=== PATIENT | female | born 1990 | race African-American/Black ===

== ENCOUNTER 2023-10-02 06:03 | Inpatient (IN) | payer SELFPAY ==
[2023-10-02] VITALS (67 sets, daily range): BP systolic 86–157; BP diastolic 44–77; PULSE 63–118; RESP 16–29; TEMP 36.4–37.3; O2SAT 98–100
--- NOTE | 2023-10-02 06:22 | W.ED.GENAD ---
Discharge Plan Discharge Details Chief Complaint: GenMedical Primary Care Provider: Unknown,Unknown ED Provider: Ragini Hinds Home Meds and New Rx's Prescriptions: No Action No Known Home Meds HPI General Mode of arrival: ambulatory. Date/Time Provider Initiated Documentation: 10/02/23 06:14. Limitations to Documentation: no limitations. Information obtained by: patient. HPI Narrative: 33yo F with T1DM presenting with N/V and malaise, feels like prior episodes of DKA. Ran out of long-acting insulin 5 days ago. Has been using small bolus (5-10 units) of short acting insulin over this period of time; ran out of short acting yesterday morning. Does not have supplies to check her blood glucose at home; not sure what it has been. For the past 24 hours has been vomiting, tolerating on sips of fluids. No abdominal pain. Has had some mild left upper chest pain, feels tender when she pushes on it, for the past week or so. No shortness of breath. No fevers, chills, rash, dysuriua, hematuria, flank pain, or other concerns. Related Data Home Medications ?Medication ?Instructions ?Recorded ?Confirmed Unknown [No Known Home Meds] 10/02/23 10/02/23 Allergies Allergy/AdvReac Type Severity Reaction Status Date / Time amoxicillin AdvReac Intermediate Nausea Verified 10/02/23 06:12 General Stated Complaint: GenMedical JESUS ALBERTO: 3 Review of Systems Narrative: see HPI Exam Narrative Exam Narrative: General: Alert, well appearing, well nourished, in no acute distress. Head: Normocephalic, atraumatic Neck: Trachea midline, ?Neck supple. ENT: ?MMM.? No oropharygeal lesions or exudate. Cardiac: ?RRR, no murmurs appreciated Resp: No respiratory distress. CTAB. Chest: left anterior lateral superior chest wall tenderness to palpation Abd: ?Soft, non-distended, nontender : ?No suprapubic tenderness. Extremities: ?No deformities.? No peripheral edema. Neurologic: GCS 15. ? Moves all extremities freely against gravity Course Vital Signs Vital signs: Vital Signs Temperature 36.6 C 10/02/23 06:07 Pulse 93 H 10/02/23 06:07 Respiratory Rate 20 10/02/23 06:07 Blood Pressure 123/73 10/02/23 06:07 Pulse Oximetry 100 10/02/23 06:07 Temperature 36.6 C 10/02/23 06:07 Temperature Source Temporal Artery Scan 10/02/23 06:07 Pulse 93 H 10/02/23 06:07 Respiratory Rate 20 10/02/23 06:17 Respiratory Effort Normal, Non-Labored 10/02/23 06:17 Respiratory Depth Normal 10/02/23 06:17 Respiratory Pattern Normal 10/02/23 06:17 Blood Pressure 123/73 10/02/23 06:07 Blood Pressure Position Sitting 10/02/23 06:07 Pulse Oximetry 100 10/02/23 06:07 Oxygen Delivery Method Room Air 10/02/23 06:07 Oxygen Flow Rate 0 10/02/23 06:07 Pain Level 0 10/02/23 06:07 Lab/Test Results Lab/Test Results: Laboratory Tests Range/Units 10/02/23 06:19 Beta HCG, Quant Cancelled POC- Test(urine) Negative Medical Decision Making 33yo F with T1DM presenting with N/V and malaise, feels like prior episodes of DKA. Fingerstick on arrival 413. Ran out of long-acting insulin 5 days ago, short acting insulin yesterday; has no supplies to check blood glucose at home. [place], does not have anyone currently prescribed her medications here. HR slightly elevated at 93 on arrival, vital signs otherwise reassuring. No abdominal tenderness on exam; would not get CT imaging. Does have mild chest wall tenderness likely muscular in origin; will evaluate for cardiac pathology (unlikely) with EKG/troponin, as well as CXR. Highly suspicious for DKA in the setting of medication non-compliance; no infectious symptoms or other clear provoking factor. Will start fluid resus with 2L IVFB, send labs and await results prior to administering insulin. -EKG with appropriate intervals, no ST segment or T wave abnormalities to suggest occlusive NC. -Labs reviewed as below, CBC with leukocytosis to 17 (nonspecific), initial lactic 3.1. CMP, VBG, troponin pending. Urine negative; UA with high glucose and ketones. Signed out to oncoming physician; pending CXR and labs as above. Quality:[facility] Health Related Social Needs: No Data to Display [facility] Social History Smoking/Tobacco Use Status: Current every day Tobacco Type: cigarettes and e-cigarettes Smoking risk assessment performed?: Yes Alcohol Intake: current Alcohol Intake frequency: a few times a month Drug use: Daily Substance use type: marijuana Sign Out Sign Out Data: Sign Out Comment: 33yo F, T1DM, ran out of insulin. Likely in DKA, fs ~400s, vomiting; urine with glucose and ketones. Getting 2L IVFB. Benign abdominal exam, no concerned for surgical abd. Pending CMP/VBG, troponin & CXR (chest pain likely msk). Last updated by Karla Scott MD at 10/02/23 07:28
[2023-10-02 06:26] LABS: Abs Immature Grans 0.06 10^3/uL (0.0-0.06); Absolute Eosinophil Count 0.02 10^3/uL (0.0-0.7); Absolute Lymphocyte Count 1.79 10^3/uL (1.2-3.4); Absolute Neutrophil Count 14.48 10^3/uL (1.2-6.7); Basophils % 0.5 %; Eosinophils % 0.1 %; HCT 47.5 % (36.0-46.0); HGB 15.8 g/dL (11.2-15.7); Immature Grans % 0.4 %; Lymphocytes % 10.5 %; MCH 31.1 pg (27.0-33.0); MCHC 33.3 % (32.0-36.0); MCV 94 fL (80-95); MPV 9.9 fL (8.0-11.0); Monocytes % 3.5 %; Platelet Count 343 10^3/uL (130-400); RBC 5.08 10^6/uL (3.93-5.22); RDW 12.4 % (11.7-14.6); WBC 17.03 10^3/uL (4.4-10.8)
[2023-10-02 06:27] LABS: Absolute Basophil Count 0.09 10^3/uL (0.0-0.2)
[2023-10-02 06:28] LABS: Lactate 3.1 mmol/L (0.6-1.4)
[2023-10-02] MEDS: Ondansetron 4 MG/2 ML VIAL IVP ×2 (06:28→08:46)
[2023-10-02] MEDS: Lactated Ringers 1,000 ML 1000 ML IV (06:28)
--- NOTE | 2023-10-02 06:30 | RT.EKG_ITS ---
APPROVED REPORT Exam: Resting ECG Reason for Exam: chest pain Patient Location: E HR:83 bpm ECG Measurements Heart Rate 83 AXIS MS 129 P 79 QRSd 85 QRS 58 QT 357 T 31 QTc 420 Conclusion Sinus arrhythmia...V-rate 74- 92, variation>10% appropriate intervals no ST segment or T wave abnormalities to suggest occlusive SD
[2023-10-02 06:32] LABS: Bilirubin Negative (Negative); Blood Negative (Negative); Clarity Clear (Clear); Glucose 500 mg/dL (Negative); Ketones >=160 mg/dL (Negative); Leukocyte Esterase Negative (Negative); Nitrite Negative (Negative); Specific Gravity 1.025 (1.005-1.025); Urobilinogen 0.2 mg/dL (Up to 0.2)
--- NOTE | 2023-10-02 07:00 | DI.RAD_ITS ---
Exam(s) XR CHEST 2V PA LATERAL EXAM: XR CHEST 2V PA LATERAL CLINICAL HISTORY: chest pain TECHNIQUE: 2D digital imaging was performed. Two views. COMPARISON: No exams were available for comparison FINDINGS: HEART: Normal size. Aorta: Not dilated. PULMONARY VASCULATURE: Normal. MEDIASTINUM: Unremarkable. LUNGS: Clear. PLEURAL SPACE: No pleural effusion or pneumothorax. BONE:Unremarkable for age. SOFT TISSUES: Unremarkable. IMPRESSION: No acute abnormality. DATA REPOSITORY: RADIATION DOSE DELIVERED:
[2023-10-02 07:23] LABS: BE (Venous) -18 mmol/L (-2-3); HCO3 (Venous) 10 mmol/L (23-28); O2 Sat (Venous) 91 %; TCO2 (Venous) 9 mmol/L (24-29); pCO2 (Venous) 25 mmHg (41-51); pH (Venous) 7.22 (7.31-7.41); pO2 (Venous) 70 mmHg
[2023-10-02 07:43] LABS: ALT 27 U/L (14-59); AST 23 U/L (15-37); Albumin 4.3 g/dL (3.4-5.0); Alkaline Phosphatase 92 U/L (46-116); Anion Gap 25.9 mmol/L (3-11); BUN 18 mg/dL (7-18); Bilirubin, Total 0.86 mg/dL (0.2-1.0); CO2 11.1 mmol/L (21.0-32.0); CREATININE 1.2 mg/dL (0.55-1.02); Calcium 9.6 mg/dL (8.5-10.1); Chloride 94 mmol/L (98-107); Estimated GFR 60.92 (mL/min/1.73m2); Glucose 462 mg/dL (74-106); Potassium 4.4 mmol/L (3.5-5.1); Sodium 131 mmol/L (136-145); Total Protein 7.9 g/dL (6.4-8.2)
[2023-10-02 07:44] LABS: Troponin I < 50 ng/L (< or =60)
[2023-10-02] MEDS: Normal Saline 1,000 ML 1000 ML IV (08:07)
--- NOTE | 2023-10-02 08:09 | W.EDPROG ---
Date of service: 10/02/23 Time of Service: 08:00 Medical Decision Making In brief, this is a 33-year-old female patient with a history of insulin-dependent diabetes presenting with generalized malaise in the setting of running out of her insulin. At the time that I took over her care, her workup is most concerning for diabetic ketoacidosis, with an elevated blood glucose in the 400s as well as a VBG with a pH decreased to 7.2. Her CBC demonstrates a leukocytosis but the patient has no focal infectious symptoms, is afebrile, and had a normal urinalysis. Her workup at the time that I took over her care was pending completion of a comprehensive metabolic panel, completion of her 2 L fluid bolus, and initiation of DKA protocol once her potassium has resulted. I did independently interpret the patient's x-ray, which does not show any concerning infiltrates to suggest pneumonia as the inciting event to cause her DKA. CMP shows a potassium of 4.4, bicarb of 10 and an anion gap of 26. Given this finding she was started on the DKA protocol, to include insulin drip (starting at 2 units/h), potassium containing maintenance fluid at 128 mL/h, and every hour blood glucose and every 2 hour metabolic panel checks. After initial fluid resuscitation the patient's lactate was noted to normalized to 1.7. The patient's repeat VBG demonstrates ongoing acidosis with a pH of 7.19 and a CO2 of 19, consistent with a metabolic acidosis with respiratory compensation. Her repeat metabolic panels demonstrate no significant improvement in her anion gap or bicarb, blood glucose decreased to the 200s. I reached out to our hospitalist who is graciously accepted this patient for admission to the ICU for ongoing management of her diabetic ketoacidosis. The patient remained hemodynamically appropriate while under my care, and she was transferred from this department without incident. Ragini Hinds MD Medical Records Medical records reviewed: Yes I reviewed the patient's medical records. Lab Data Lab results reviewed: Yes I reviewed the patient's lab results. Quality:[facility] Health Related Social Needs: No Data to Display Exam Narrative Exam Narrative: Repeat examination: Gen: Awake and alert, in no apparent distress HEENT: Non-icteric sclera Neck: Supple and without meningismus Lungs: No apparent respiratory distress, normal respiratory effort. CV: Appears well perfused, strong distal pulses Abdomen: Non-distended, soft, nontender MSK: Moves 4 extremities without apparent limitation in ROM Skin: Visualized skin without rashes, cyanosis. Neuro: Normal Gait, no obvious focal deficits or facial asymmetry. Speaks in full, clear sentences. Psych: Appropriate for situation. Sign Out Sign Out Data: Sign Out Comment: 33yo F, T1DM, ran out of insulin. Likely in DKA, fs ~400s, vomiting; urine with glucose and ketones. Getting 2L IVFB. Benign abdominal exam, no concerned for surgical abd. Pending CMP/VBG, troponin & CXR (chest pain likely msk). Last updated by Karla Scott MD at 10/02/23 07:28 Discharge Plan Disposition Patient Disposition: Admit to [facility] Condition: Improving Discharge Details Chief Complaint: GenMedical Clinical Impression: DKA (diabetic ketoacidosis) Admit Date/Time: 10/02/23 11:41 Admit Provider: Martinez Rogers Attending Provider: Martinez Rogers Primary Care Provider: [facility] ED Provider: Ragini Hinds
--- NOTE | 2023-10-02 08:38 | DI.VRAD_ITS ---
PROCEDURE INFORMATION: Exam: XR Chest Exam date and time: 10/02/2023 7:39 AM Age: 33 years old Clinical indication: Other: Chest pain TECHNIQUE: Imaging protocol: Radiologic exam of the chest. Views: 2 views. COMPARISON: No relevant prior studies available. FINDINGS: Lungs: Unremarkable. No consolidation. Pleural spaces: Unremarkable. No pleural effusion. No pneumothorax. Heart/Mediastinum: Unremarkable. No cardiomegaly. Bones/joints: Unremarkable. IMPRESSION: No acute findings. Dictated and Authenticated by: Judit Menjivar MD. Ordering:SOM Acosta MD
[2023-10-02 08:42] LABS: BE (Venous) -20 mmol/L (-2-3); HCO3 (Venous) 9 mmol/L (23-28); O2 Sat (Venous) 88 %; TCO2 (Venous) 8 mmol/L (24-29); pCO2 (Venous) 25 mmHg (41-51); pO2 (Venous) 66 mmHg
[2023-10-02 08:47] LABS: pH (Venous) 7.17 (7.31-7.41)
[2023-10-02 08:58] LABS: Anion Gap 26.7 mmol/L (3-11); BUN 18 mg/dL (7-18); CO2 10.3 mmol/L (21.0-32.0); CREATININE 1.2 mg/dL (0.55-1.02); Calcium 9.4 mg/dL (8.5-10.1); Chloride 95 mmol/L (98-107); Estimated GFR 60.92 (mL/min/1.73m2); Glucose 446 mg/dL (74-106); Magnesium 1.7 mg/dL (1.8-2.4); Potassium 4.9 mmol/L (3.5-5.1); Sodium 132 mmol/L (136-145)
[2023-10-02] MEDS: INSULIN REGULAR IN 0.9 % NACL 100 UNIT/100 ML BAG IV (09:08)
[2023-10-02] MEDS: POTASSIUM CHLORIDE/0.9% NACL 1,000 ML 120 MEQ IV (09:10)
[2023-10-02 11:08] LABS: BE (Venous) -21 mmol/L (-2-3); HCO3 (Venous) 7 mmol/L (23-28); O2 Sat (Venous) 97 %; TCO2 (Venous) 7 mmol/L (24-29); pO2 (Venous) 99 mmHg
[2023-10-02 11:10] LABS: pCO2 (Venous) 19 mmHg (41-51); pH (Venous) 7.19 (7.31-7.41)
[2023-10-02 11:11] LABS: Lactate 1.7 mmol/L (0.6-1.4)
[2023-10-02 11:28] LABS: Anion Gap 25.2 mmol/L (3-11); BUN 17 mg/dL (7-18); CO2 8.8 mmol/L (21.0-32.0); CREATININE 1.1 mg/dL (0.55-1.02); Chloride 98 mmol/L (98-107); Estimated GFR 67.62 (mL/min/1.73m2); Glucose 325 mg/dL (74-106); Magnesium 1.8 mg/dL (1.8-2.4); Potassium 4.5 mmol/L (3.5-5.1); Sodium 132 mmol/L (136-145)
--- NOTE | 2023-10-02 11:53 | HPE_ITS ---
Date of service: 10/02/23 Time of Service: 11:53 Assessment and Plan Assessment and plan (1) DKA (diabetic ketoacidosis): Start date: 10/02/23 Status: Acute Assessment and plan: Continue aggressive IV fluid hydration and potassium replacement, monitor blood sugars hourly or more frequently as needed, monitor BMP every 2 hours. Recheck VBG, check phosphorus levels and magnesium levels. Correct electrolyte abnormalities provide antiemetics and advance her diet as tolerated. Note patient is starting to feel hungry less nauseated and would like some solid foods. 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 She anticipates that she will be on the road for the next 6 weeks before she gets back to [place]. I told her we could write a prescription for a month supply with refills of her medications including her Tresiba and her Humalog so that she does not go into DKA again while she is traveling. Critical care time spent interviewing and examining the patient, reviewing studies, discussing case with patient's nurse and consulting physicians was 45 minutes Qualifiers: Diabetes mellitus type: type 1 Diabetes mellitus complication detail: w [facility] Qualified Code(s): E10.10 - Type 1 diabetes mellitus with ketoacidosis without coma History of Present Illness History of Present Illness Chief Complaint: DKA Narrative: 33 yr old female who comes here from [place], [place] who has had type I DM diagnosed since 2018, who lost her Tresiba on a kayaking trip and has been getting by w/ her short acting insulin Humalog. She ran out of his yesterday. She tried to get her insulin refilled by her PCP in [place] (Dianne Boudreaux M.D., [facility], [place], [place] however her informatics specialist would not prescribe a refill w/out labwork. The patient has been on the road traveling w/ the [employer] and happened to be in town for the [facility]. She ran out of her insulin yesterday and developed nausea and vomiting and elevated glucose. Last dose of insulin 4 units Humalog at 11 am on 09/30. Today she was found to be in DKA w/ glucose in the 400's and AG of 25.9, pH 7.22, CO2 of 11. She denies any fevers, rigors, cold symptoms or dysuria or hematuria or cough. Workup in the ED included routine labs including CMP, CBC, UA, CXR. UA was negative for signs of infection but high ketones and glucose. CXR was negative. Treatment included 2 liters of iv LR then NS w/ 20 meq KCl per liter at 125 mL/hr and insulin drip. The hospitalist service was asked to admit and treat her for DKA. At the time of the admission request the hospital was at capacity which necessitated keeping her on hold in the ED until an ICU bed could be cleared which necessitated discharging floor patients prior to moving patients out of the ICU. Serial BMP have been monitored q2h and her glucose has been monitored q1h w/ adjustment per [place] insulin DKA protocol. Glucose is now under 200 mg/dL and she has been started on D5NS w/ 40 meq KCl per liters. Current glucose is 157 and her AG is closing at 15.2 w/ CO2 of 14.8, K of 4.3. PFSH All Active Problems (Updated 10/02/23 @ 16:18 by Martinez Rogers MD) Type I diabetes mellitus (Acute ~2014) DKA (diabetic ketoacidosis) (Acute) last A1C was checked last year and reported to be 9.2% Surgical History (Updated 10/02/23 @ 16:06 by Martinez Rogers MD) History of tonsillectomy Hx of breast implants, bilateral Social History Smoking/Tobacco Use Status: Current every day Tobacco Type: cigarettes and e- cigarettes Smoking risk assessment performed?: Yes Alcohol Intake: current Alcohol Intake frequency: a few times a month Drug use: Daily Substance use type: marijuana Housing: apartment Meds Allergies and Home Medications Allergies Allergy/AdvReac Type Severity Reaction Status Date / Time amoxicillin AdvReac Intermediate Nausea Verified 10/02/23 06:12 Home Medications ?Medication ?Instructions ?Recorded ?Confirmed ?Type Unknown [No Known Home Meds] 10/02/23 10/02/23 History Exam Narrative Exam Narrative: Thin young -Ira[place] female who appears to be alert and oriented x 3 no acute distress not having Kussmaul respirations no accessory respiratory muscles. This point of breath does not admit have any fruity smell. Oropharynx is noninjected no exudate Neck is supple she has a few shotty anterior lymph nodes that are nontender no thyromegaly normal carotid pulses no bruits Lungs are clear to auscultation Heart regular rate and rhythm without murmur rub or gallop Abdomen soft nondistended nontender normal bowel sounds Extremities without peripheral cyanosis edema she has normal pedal pulses no ulcerations of the skin over her toes or feet sensation is intact to light touch Results Labs 10/02/23 06:20 10/02/23 13:04 Labs: Laboratory Results - last 24 hr 10/02/23 10/02/23 10/02/23 06:10 06:19 06:20 WBC 17.03 H RBC 5.08 Hgb 15.8 H Hct 47.5 H MCV 94 MCH 31.1 MCHC 33.3 RDW 12.4 Plt Count 343 MPV 9.9 Immature Gran % 0.4 Neutrophils % 85.0 Lymphocytes % 10.5 Monocytes % 3.5 Eosinophils % 0.1 Basophils % 0.5 Nucleated RBC % 0.0 Absolute Neutrophils 14.48 H Absolute Lymphocytes 1.79 Absolute Monocytes 0.60 Absolute Eosinophils 0.02 Absolute Basophils 0.09 VBG pH VBG pCO2 VBG pO2 VBG HCO3 VBG Total CO2 VBG O2 Saturation VBG Base Excess VBG Lactate 3.1 H* Sodium Cancelled Potassium Cancelled Chloride Cancelled Carbon Dioxide Cancelled Anion Gap Cancelled BUN Cancelled Creatinine Cancelled Est GFR (CKD-EPI 2020) Cancelled Glucose Cancelled Calcium Cancelled Magnesium Total Bilirubin Cancelled AST Cancelled ALT Cancelled Alkaline Phosphatase Cancelled Troponin I Total Protein Cancelled Albumin Cancelled Beta HCG, Quant Cancelled Urine Color Yellow Urine Clarity Clear Urine pH 5.0 Ur Specific [place] 1.025 Urine Protein Negative Urine Ketones >=160 H Urine Blood Negative Urine Nitrite Negative Urine Bilirubin Negative Urine Urobilinogen 0.2 Ur Leukocyte Esterase Negative Urine Glucose 500 H 10/02/23 10/02/23 10/02/23 07:15 07:15 08:35 WBC RBC Hgb Hct MCV MCH MCHC RDW Plt Count MPV Immature Gran % Neutrophils % Lymphocytes % Monocytes % Eosinophils % Basophils % Nucleated RBC % Absolute Neutrophils Absolute Lymphocytes Absolute Monocytes Absolute Eosinophils Absolute Basophils VBG pH 7.22 L 7.17 L* VBG pCO2 25 L 25 L VBG pO2 70 66 VBG HCO3 10 L 9 L VBG Total CO2 9 L 8 L VBG O2 Saturation 91 88 VBG Base Excess -18 L -20 L VBG Lactate Sodium 131 L 132 L Potassium 4.4 4.9 Chloride 94 L 95 L Carbon Dioxide 11.1 L 10.3 L Anion Gap 25.9 H 26.7 H BUN 18 18 Creatinine 1.2 H 1.2 H Est GFR (CKD-EPI 2020) 60.92 60.92 Glucose 462 H 446 H Calcium 9.6 9.4 Magnesium 1.7 L Total Bilirubin 0.86 AST 23 ALT 27 Alkaline Phosphatase 92 Troponin I Cancelled < 50 Total Protein 7.9 Albumin 4.3 Beta HCG, Quant Urine Color Urine Clarity Urine pH Ur Specific [place] Urine Protein Urine Ketones Urine Blood Urine Nitrite Urine Bilirubin Urine Urobilinogen Ur Leukocyte Esterase Urine Glucose 10/02/23 11:02 WBC RBC Hgb Hct MCV MCH MCHC RDW Plt Count MPV Immature Gran % Neutrophils % Lymphocytes % Monocytes % Eosinophils % Basophils % Nucleated RBC % Absolute Neutrophils Absolute Lymphocytes Absolute Monocytes Absolute Eosinophils Absolute Basophils VBG pH 7.19 L* VBG pCO2 19 L* VBG pO2 99 VBG HCO3 7 L VBG Total CO2 7 L VBG O2 Saturation 97 VBG Base Excess -21 L VBG Lactate 1.7 H Sodium 132 L Potassium 4.5 Chloride 98 Carbon Dioxide 8.8 L Anion Gap 25.2 H BUN 17 Creatinine 1.1 H Est GFR (CKD-EPI 2020) 67.62 Glucose 325 H Calcium 8.0 L Magnesium 1.8 Total Bilirubin AST ALT Alkaline Phosphatase Troponin I Total Protein Albumin Beta HCG, Quant Urine Color Urine Clarity Urine pH Ur Specific [place] Urine Protein Urine Ketones Urine Blood Urine Nitrite Urine Bilirubin Urine Urobilinogen Ur Leukocyte Esterase Urine Glucose Last Vital Signs Temp 36.4 C L 10/02/23 10:31 Pulse 91 H 10/02/23 10:31 Resp 23 10/02/23 10:31 BP 102/55 L 10/02/23 10:31 Pulse Ox 99 10/02/23 10:31 Time Spent Time spent with Patient: 40-54 minutes Time was spent: preparing to see the patient(eg.review tests), obtaining and/or reviewing separately otained hiistory, ordering medications,tests, procedures, referring, communicating with other health transitional care manager, indepentently interpreting results, counseling the patient and care coordination
--- NOTE | 2023-10-02 12:15 | W.PC.ACHO ---
Registration Status: Primary Language: Preferred Language: ED Information & Data Chief Complaint GenMedical 10/02/23 06:22 Triage Note Pt states she has not had 10/02/23 06:07 long lasting insulin in approx 5 days, used the last of her short acting (4u @ 1100 on 09/30) yesterday. Pt states feels like shit. c/o nausea and vomiting x24hrs. Pt does not know when she last checked her sugar, does not have BGL machine. Most Recent Vital Signs Temperature 36.4 C L 10/02/23 10:31 Temperature Source Temporal Artery Scan 10/02/23 06:07 Pulse 91 H 10/02/23 10:31 Pulse 91 H 10/02/23 10:31 Respiratory Rate 23 10/02/23 10:31 Respiratory Effort Normal, Non-Labored 10/02/23 06:17 Respiratory Depth Normal 10/02/23 06:17 Respiratory Pattern Normal 10/02/23 06:17 Blood Pressure 102/55 L 10/02/23 10:31 Blood Pressure Mean 70 10/02/23 10:31 Blood Pressure Position Sitting 10/02/23 06:07 Pulse Oximetry 99 10/02/23 10:31 Oxygen Delivery Method Room Air 10/02/23 06:07 Oxygen Flow Rate 0 10/02/23 06:07 Pain Level 0 10/02/23 06:07 Allergies amoxicillin Adverse Reaction (Intermediate, Verified 10/02/23 06:12) Nausea Precautions Isolation Standard precaution 10/02/23 06:11 Active Medications Generic Name Dose Route Start Last Admin Trade Name Bonny PRN Reason Stop Dose Admin Insulin Human Regular 100 unit in 100 mls @ 2 mls/hr 10/02/23 08:00 10/02/23 12:04 Myxredlin IV 2 unit/hr INFUSION YOGESH 2 mls/hr Titration Protocol 2 UNIT/HR IV IV Catheter Type [Right Upper Peripheral IV arm] IV Catheter Type [Right Peripheral IV Forearm] IV Catheter Gauge [Right Upper 20 arm] IV Catheter Gauge [Right 20 Forearm] Diagnostics 10/02/23 10/02/23 10/02/23 Range/Units 22:00 20:00 18:00 WBC (4.4-10.8) 10^3/uL RBC (3.93-5.22) 10^6/uL Hgb (11.2-15.7) g/dL Hct (36.0-46.0) % MCV (80-95) fL MCH (27.0-33.0) pg MCHC (32.0-36.0) % RDW (11.7-14.6) % Plt Count (130-400) 10^3/uL MPV (8.0-11.0) fL Immature Gran % % Neutrophils % % Lymphocytes % % Monocytes % % Eosinophils % % Basophils % % Nucleated RBC % (0.0-0.3) % Absolute Neutrophils (1.2-6.7) 10^3/uL Absolute Lymphocytes (1.2-3.4) 10^3/uL Absolute Monocytes (0.1-0.8) 10^3/uL Absolute Eosinophils (0.0-0.7) 10^3/uL Absolute Basophils (0.0-0.2) 10^3/uL VBG pH (7.31-7.41) VBG pCO2 (41-51) mmHg VBG pO2 mmHg VBG HCO3 (23-28) mmol/L VBG Total CO2 (24-29) mmol/L VBG O2 Saturation % VBG Base Excess (-2-3) mmol/L VBG Lactate (0.6-1.4) mmol/L Sodium Pending Pending Pending Potassium Pending Pending Pending Chloride Pending Pending Pending Carbon Dioxide Pending Pending Pending Anion Gap Pending Pending Pending BUN Pending Pending Pending Creatinine Pending Pending Pending Est GFR (CKD-EPI 2020) Pending Pending Pending Glucose Pending Pending Pending Calcium Pending Pending Pending Phosphorus Magnesium Pending Pending Pending (1.8-2.4) mg/dL Total Bilirubin AST ALT Alkaline Phosphatase Troponin I Total Protein Albumin Beta HCG, Quant Urine Color (Yellow) Urine Clarity (Clear) Urine pH (5-8) Ur Specific [place] (1.005-1.025) Urine Protein (Neg-Trace) mg/dL Urine Ketones (Negative) mg/dL Urine Blood (Negative) Urine Nitrite (Negative) Urine Bilirubin (Negative) Urine Urobilinogen (Up to 0.2) mg/dL Ur Leukocyte Esterase (Negative) Urine Glucose (Negative) mg/dL 10/02/23 10/02/23 10/02/23 Range/Units 16:00 14:00 12:00 WBC (4.4-10.8) 10^3/uL RBC (3.93-5.22) 10^6/uL Hgb (11.2-15.7) g/dL Hct (36.0-46.0) % MCV (80-95) fL MCH (27.0-33.0) pg MCHC (32.0-36.0) % RDW (11.7-14.6) % Plt Count (130-400) 10^3/uL MPV (8.0-11.0) fL Immature Gran % % Neutrophils % % Lymphocytes % % Monocytes % % Eosinophils % % Basophils % % Nucleated RBC % (0.0-0.3) % Absolute Neutrophils (1.2-6.7) 10^3/uL Absolute Lymphocytes (1.2-3.4) 10^3/uL Absolute Monocytes (0.1-0.8) 10^3/uL Absolute Eosinophils (0.0-0.7) 10^3/uL Absolute Basophils (0.0-0.2) 10^3/uL VBG pH (7.31-7.41) VBG pCO2 (41-51) mmHg VBG pO2 mmHg VBG HCO3 (23-28) mmol/L VBG Total CO2 (24-29) mmol/L VBG O2 Saturation % VBG Base Excess (-2-3) mmol/L VBG Lactate (0.6-1.4) mmol/L Sodium Pending Pending Pending Potassium Pending Pending Pending Chloride Pending Pending Pending Carbon Dioxide Pending Pending Pending Anion Gap Pending Pending Pending BUN Pending Pending Pending Creatinine Pending Pending Pending Est GFR (CKD-EPI 2020) Pending Pending Pending Glucose Pending Pending Pending Calcium Pending Pending Pending Phosphorus Magnesium Pending Pending Pending (1.8-2.4) mg/dL Total Bilirubin AST ALT Alkaline Phosphatase Troponin I Total Protein Albumin Beta HCG, Quant Urine Color (Yellow) Urine Clarity (Clear) Urine pH (5-8) Ur Specific [place] (1.005-1.025) Urine Protein (Neg-Trace) mg/dL Urine Ketones (Negative) mg/dL Urine Blood (Negative) Urine Nitrite (Negative) Urine Bilirubin (Negative) Urine Urobilinogen (Up to 0.2) mg/dL Ur Leukocyte Esterase (Negative) Urine Glucose (Negative) mg/dL 10/02/23 10/02/23 10/02/23 Range/Units 11:02 08:35 07:15 WBC (4.4-10.8) 10^3/uL RBC (3.93-5.22) 10^6/uL Hgb (11.2-15.7) g/dL Hct (36.0-46.0) % MCV (80-95) fL MCH (27.0-33.0) pg MCHC (32.0-36.0) % RDW (11.7-14.6) % Plt Count (130-400) 10^3/uL MPV (8.0-11.0) fL Immature Gran % % Neutrophils % % Lymphocytes % % Monocytes % % Eosinophils % % Basophils % % Nucleated RBC % (0.0-0.3) % Absolute Neutrophils (1.2-6.7) 10^3/uL Absolute Lymphocytes (1.2-3.4) 10^3/uL Absolute Monocytes (0.1-0.8) 10^3/uL Absolute Eosinophils (0.0-0.7) 10^3/uL Absolute Basophils (0.0-0.2) 10^3/uL VBG pH 7.19 L* 7.17 L* (7.31-7.41) VBG pCO2 19 L* 25 L (41-51) mmHg VBG pO2 99 66 mmHg VBG HCO3 7 L 9 L (23-28) mmol/L VBG Total CO2 7 L 8 L (24-29) mmol/L VBG O2 Saturation 97 88 % VBG Base Excess -21 L -20 L (-2-3) mmol/L VBG Lactate 1.7 H (0.6-1.4) mmol/L Sodium 132 L 132 L Potassium 4.5 4.9 Chloride 98 95 L Carbon Dioxide 8.8 L 10.3 L Anion Gap 25.2 H 26.7 H BUN 17 18 Creatinine 1.1 H 1.2 H Est GFR (CKD-EPI 2020) 67.62 60.92 Glucose 325 H 446 H Calcium 8.0 L 9.4 Phosphorus Pending Magnesium 1.8 1.7 L (1.8-2.4) mg/dL Total Bilirubin AST ALT Alkaline Phosphatase Troponin I < 50 Total Protein 7.9 Albumin 4.3 Beta HCG, Quant Urine Color (Yellow) Urine Clarity (Clear) Urine pH (5-8) Ur Specific [place] (1.005-1.025) Urine Protein (Neg-Trace) mg/dL Urine Ketones (Negative) mg/dL Urine Blood (Negative) Urine Nitrite (Negative) Urine Bilirubin (Negative) Urine Urobilinogen (Up to 0.2) mg/dL Ur Leukocyte Esterase (Negative) Urine Glucose (Negative) mg/dL 10/02/23 10/02/23 10/02/23 Range/Units 07:15 06:20 06:19 WBC 17.03 H (4.4-10.8) 10^3/uL RBC 5.08 (3.93-5.22) 10^6/uL Hgb 15.8 H (11.2-15.7) g/dL Hct 47.5 H (36.0-46.0) % MCV 94 (80-95) fL MCH 31.1 (27.0-33.0) pg MCHC 33.3 (32.0-36.0) % RDW 12.4 (11.7-14.6) % Plt Count 343 (130-400) 10^3/uL MPV 9.9 (8.0-11.0) fL Immature Gran % 0.4 % Neutrophils % 85.0 % Lymphocytes % 10.5 % Monocytes % 3.5 % Eosinophils % 0.1 % Basophils % 0.5 % Nucleated RBC % 0.0 (0.0-0.3) % Absolute Neutrophils 14.48 H (1.2-6.7) 10^3/uL Absolute Lymphocytes 1.79 (1.2-3.4) 10^3/uL Absolute Monocytes 0.60 (0.1-0.8) 10^3/uL Absolute Eosinophils 0.02 (0.0-0.7) 10^3/uL Absolute Basophils 0.09 (0.0-0.2) 10^3/uL VBG pH 7.22 L (7.31-7.41) VBG pCO2 25 L (41-51) mmHg VBG pO2 70 mmHg VBG HCO3 10 L (23-28) mmol/L VBG Total CO2 9 L (24-29) mmol/L VBG O2 Saturation 91 % VBG Base Excess -18 L (-2-3) mmol/L VBG Lactate 3.1 H* (0.6-1.4) mmol/L Sodium 131 L Cancelled Potassium 4.4 Cancelled Chloride 94 L Cancelled Carbon Dioxide 11.1 L Cancelled Anion Gap 25.9 H Cancelled BUN 18 Cancelled Creatinine 1.2 H Cancelled Est GFR (CKD-EPI 2020) 60.92 Cancelled Glucose 462 H Cancelled Calcium 9.6 Cancelled Phosphorus Magnesium (1.8-2.4) mg/dL Total Bilirubin 0.86 Cancelled AST 23 Cancelled ALT 27 Cancelled Alkaline Phosphatase 92 Cancelled Troponin I Cancelled Total Protein Cancelled Albumin Cancelled Beta HCG, Quant Cancelled Urine Color (Yellow) Urine Clarity (Clear) Urine pH (5-8) Ur Specific [place] (1.005-1.025) Urine Protein (Neg-Trace) mg/dL Urine Ketones (Negative) mg/dL Urine Blood (Negative) Urine Nitrite (Negative) Urine Bilirubin (Negative) Urine Urobilinogen (Up to 0.2) mg/dL Ur Leukocyte Esterase (Negative) Urine Glucose (Negative) mg/dL 10/02/23 Range/Units 06:10 WBC (4.4-10.8) 10^3/uL RBC (3.93-5.22) 10^6/uL Hgb (11.2-15.7) g/dL Hct (36.0-46.0) % MCV (80-95) fL MCH (27.0-33.0) pg MCHC (32.0-36.0) % RDW (11.7-14.6) % Plt Count (130-400) 10^3/uL MPV (8.0-11.0) fL Immature Gran % % Neutrophils % % Lymphocytes % % Monocytes % % Eosinophils % % Basophils % % Nucleated RBC % (0.0-0.3) % Absolute Neutrophils (1.2-6.7) 10^3/uL Absolute Lymphocytes (1.2-3.4) 10^3/uL Absolute Monocytes (0.1-0.8) 10^3/uL Absolute Eosinophils (0.0-0.7) 10^3/uL Absolute Basophils (0.0-0.2) 10^3/uL VBG pH (7.31-7.41) VBG pCO2 (41-51) mmHg VBG pO2 mmHg VBG HCO3 (23-28) mmol/L VBG Total CO2 (24-29) mmol/L VBG O2 Saturation % VBG Base Excess (-2-3) mmol/L VBG Lactate (0.6-1.4) mmol/L Sodium Potassium Chloride Carbon Dioxide Anion Gap BUN Creatinine Est GFR (CKD-EPI 2020) Glucose Calcium Phosphorus Magnesium (1.8-2.4) mg/dL Total Bilirubin AST ALT Alkaline Phosphatase Troponin I Total Protein Albumin Beta HCG, Quant Urine Color Yellow (Yellow) Urine Clarity Clear (Clear) Urine pH 5.0 (5-8) Ur Specific [place] 1.025 (1.005-1.025) Urine Protein Negative (Neg-Trace) mg/dL Urine Ketones >=160 H (Negative) mg/dL Urine Blood Negative (Negative) Urine Nitrite Negative (Negative) Urine Bilirubin Negative (Negative) Urine Urobilinogen 0.2 (Up to 0.2) mg/dL Ur Leukocyte Esterase Negative (Negative) Urine Glucose 500 H (Negative) mg/dL [id number] Documentation Fingerstick Glucose Start: 10/02/23 06:18 Freq: .Stat Status: Active Protocol: Activity Type Activity Date Activity User E-sign Co-sign Detail Recorded Client Recorded Date Recorded By Document 10/02/23 06:19 KS [id number] 10/02/23 06:19 KS Fingerstick Glucose Start: 10/02/23 07:54 Freq: .Q1H Status: Active Protocol: Activity Type Activity Date Activity User E-sign Co-sign Detail Recorded Client Recorded Date Recorded By Document 10/02/23 11:05 BKG DAEMON(5) [id number] 10/02/23 11:06 BKG DAEMON(6) Fingerstick Glucose Start: 10/02/23 11:53 Freq: .Q1H Status: Active Protocol: Activity Type Activity Date Activity User E-sign Co-sign Detail Recorded Client Recorded Date Recorded By Document 10/02/23 12:03 BKG DAEMON(7) [id number] 10/02/23 12:04 BKG DAEMON(8) POC Urine Test Start: 10/02/23 06:16 Freq: .Urine Test Status: Active Protocol: Activity Type Activity Date Activity User E-sign Co-sign Detail Recorded Client Recorded Date Recorded By Document 10/02/23 06:20 JENNIFER [id number] 10/02/23 06:20 JENNIFER Intake and Output - 24 Hour Total 10/02/23 06:03 thru 10/02/23 12:04 Intake Total 2314.2 Balance 2314.2 Weight 61.235 kg Intake: IV 2014.2 Oral 300 Falls Risk Assessment History of Falls No History 10/02/23 06:17 Contributing Factors No Factors 10/02/23 06:17 Ambulatory Aids Independent 10/02/23 06:17 Tubes/Lines None 10/02/23 06:17 Gait Evaluation No gait disturbance 10/02/23 06:17 Cognition No cognitive impairment 10/02/23 06:17 Fall Total Score 0 10/02/23 06:17 Level of Risk Standard/Low Risk 10/02/23 06:17 v v v v v v v v v Sending and/or Receiving Nurses: Please use comment section below to note any information pertinent to the patient hand-off not included above. Information / Comments: Report received from:Karie Felix RN All questions answered
[2023-10-02 12:21] LABS: PHOSPHORUS 3.3 mg/dL (2.6-4.7)
[2023-10-02 13:22] LABS: Anion Gap 21.8 mmol/L (3-11); BUN 15 mg/dL (7-18); CO2 12.2 mmol/L (21.0-32.0); CREATININE 1.2 mg/dL (0.55-1.02); Calcium 7.9 mg/dL (8.5-10.1); Chloride 100 mmol/L (98-107); Estimated GFR 60.92 (mL/min/1.73m2); Glucose 212 mg/dL (74-106); Potassium 4.4 mmol/L (3.5-5.1); Sodium 134 mmol/L (136-145)
[2023-10-02] MEDS: Enoxaparin 40 MG/0.4 ML SYR SC (14:20)
[2023-10-02] MEDS: Acetaminophen 325 MG TAB PO ×2 (15:00→19:41)
[2023-10-02] MEDS: POTASSIUM CHLORIDE/D5-0.9%NACL 1,000 ML 150 MEQ IV ×2 (15:00→22:46)
[2023-10-02 15:29] LABS: Anion Gap 15.2 mmol/L (3-11); BUN 13 mg/dL (7-18); CO2 14.8 mmol/L (21.0-32.0); CREATININE 1.1 mg/dL (0.55-1.02); Chloride 102 mmol/L (98-107); Estimated GFR 67.62 (mL/min/1.73m2); Glucose 187 mg/dL (74-106); Potassium 4.3 mmol/L (3.5-5.1); Sodium 132 mmol/L (136-145)
[2023-10-02 16:58] LABS: Lab Add On Test DONE
[2023-10-02 16:59] LABS: BE (Venous) -11 mmol/L (-2-3); HCO3 (Venous) 16 mmol/L (23-28); O2 Sat (Venous) 61 %; TCO2 (Venous) 14 mmol/L (24-29); pCO2 (Venous) 33 mmHg (41-51); pH (Venous) 7.29 (7.31-7.41); pO2 (Venous) 32 mmHg
[2023-10-02 17:12] LABS: BUN 13 mg/dL (7-18); CREATININE 1.2 mg/dL (0.55-1.02); Calcium 8.1 mg/dL (8.5-10.1); Chloride 102 mmol/L (98-107); Estimated GFR 60.92 (mL/min/1.73m2); Glucose 163 mg/dL (74-106); Potassium 4.2 mmol/L (3.5-5.1); Sodium 133 mmol/L (136-145)
[2023-10-02 17:17] LABS: Hemoglobin A1C 11.8 % (<5.7)
[2023-10-02 19:18] LABS: Anion Gap 11.5 mmol/L (3-11); BUN 13 mg/dL (7-18); CO2 16.5 mmol/L (21.0-32.0); CREATININE 1.1 mg/dL (0.55-1.02); Calcium 7.9 mg/dL (8.5-10.1); Chloride 104 mmol/L (98-107); Estimated GFR 67.62 (mL/min/1.73m2); Glucose 175 mg/dL (74-106); Potassium 4.5 mmol/L (3.5-5.1); Sodium 132 mmol/L (136-145)
[2023-10-02 21:16] LABS: Anion Gap 10.4 mmol/L (3-11); BUN 13 mg/dL (7-18); CO2 17.6 mmol/L (21.0-32.0); Calcium 7.9 mg/dL (8.5-10.1); Chloride 104 mmol/L (98-107); Estimated GFR 75.81 (mL/min/1.73m2); Glucose 157 mg/dL (74-106); Potassium 4.3 mmol/L (3.5-5.1); Sodium 132 mmol/L (136-145)
[2023-10-02] MEDS: Insulin Glargine 300 UNITS/3 ML PEN 15 UNITS SC (22:42)
[2023-10-02 23:08] LABS: Anion Gap 9.2 mmol/L (3-11); BUN 13 mg/dL (7-18); CO2 19.8 mmol/L (21.0-32.0); Calcium 7.9 mg/dL (8.5-10.1); Chloride 104 mmol/L (98-107); Estimated GFR 75.81 (mL/min/1.73m2); Glucose 171 mg/dL (74-106); Potassium 4.2 mmol/L (3.5-5.1); Sodium 133 mmol/L (136-145)
[2023-10-03] VITALS: PULSE 68; RESP 21; O2SAT 100
[2023-10-03 00:01] VITALS: BP 92/59; PULSE 69; PULSE 70; RESP 20; O2SAT 100
[2023-10-03 02:00] VITALS: BP 109/74; PULSE 60; PULSE 62; RESP 18; O2SAT 100
[2023-10-03 04:00] VITALS: PULSE 61; RESP 20; O2SAT 100
[2023-10-03 04:01] VITALS: BP 96/59; PULSE 60; PULSE 66; RESP 18; O2SAT 100
[2023-10-03 06:02] LABS: Abs Immature Grans 0.03 10^3/uL (0.0-0.06); Absolute Basophil Count 0.02 10^3/uL (0.0-0.2); Absolute Eosinophil Count 0.06 10^3/uL (0.0-0.7); Absolute Lymphocyte Count 2.43 10^3/uL (1.2-3.4); Absolute Monocyte Count 0.65 10^3/uL (0.1-0.8); Basophils % 0.2 %; Eosinophils % 0.7 %; HCT 36.9 % (36.0-46.0); HGB 12.5 g/dL (11.2-15.7); Immature Grans % 0.3 %; MCH 31.2 pg (27.0-33.0); MCHC 33.9 % (32.0-36.0); MCV 92 fL (80-95); MPV 9.5 fL (8.0-11.0); Monocytes % 7.2 %; Neutrophils % 64.6 %; Platelet Count 244 10^3/uL (130-400); RBC 4.01 10^6/uL (3.93-5.22); RDW 12.5 % (11.7-14.6); RDW-SD 42.5 fL; WBC 8.99 10^3/uL (4.4-10.8)
[2023-10-03 06:23] LABS: ALT 22 U/L (14-59); AST 21 U/L (15-37); Alkaline Phosphatase 63 U/L (46-116); Anion Gap 9.9 mmol/L (3-11); BUN 11 mg/dL (7-18); Bilirubin, Total 0.58 mg/dL (0.2-1.0); CO2 19.1 mmol/L (21.0-32.0); CREATININE 0.9 mg/dL (0.55-1.02); Calcium 7.8 mg/dL (8.5-10.1); Chloride 108 mmol/L (98-107); Estimated GFR 86.03 (mL/min/1.73m2); Glucose 80 mg/dL (74-106); Potassium 3.8 mmol/L (3.5-5.1); Sodium 137 mmol/L (136-145); Total Protein 5.6 g/dL (6.4-8.2)
--- NOTE | 2023-10-03 08:36 | INITIAL_ITS ---
Date of service: 10/03/23 Time of Service: 08:37 Care Management Initial Assmt Initial Assessment Reason for Hospitalization: DKA Advance Directives Advance Directives: Do you have an Advance Directive: N 10/02/23 07:19 AD On File at [facility]: N 10/02/23 07:19 Date Asked 10/02/23 10/02/23 07:19 AD Date Reviewed COLST On File at [facility] COLST Date Scanned Code Status Resuscitation Status Full Code Care Team Visit Care Team Role Provider Type Local No Primary Care Provider NON-[facility] STAFF PHYSIC LOPEZ Hinds MD Emergency Provider [facility] STAFF PHYSICIAN Martinez Rogers MD Admit Provider [facility] STAFF PHYSICIAN Attending Provider [facility] All Active Problems (Updated 10/02/23 @ 16:18 by Martinez Rogers MD) Type I diabetes mellitus (Acute ~2015) DKA (diabetic ketoacidosis) (Acute) last A1C was checked last year and reported to be 9.2% Surgical History (Updated 10/02/23 @ 16:06 by Martinez Rogers MD) History of tonsillectomy Hx of breast implants, bilateral Social History Smoking/Tobacco Use Status: Current every day Tobacco Type: cigarettes and e- cigarettes Smoking risk assessment performed?: Yes Alcohol Intake: current Alcohol Intake frequency: a few times a month Drug use: Daily Substance use type: marijuana Housing: apartment SDOH(Care Management) Screening Will the Patient Participate in the Screening?: Unable to obtain Do you worry about having a steady place to live?: no Problems where you live: no known problems In the past 12 months, have you had to go without electric, gas, oil or water in your home?: no Have you or anyone in your house had to go without enough food to eat?: no Has lack of transportation kept you from medical appointments or from doing things needed for daily living?: no Has anyone in your support network made you feel unsafe for any reason?: no
--- NOTE | 2023-10-03 08:58 | PDOC.CMDIS ---
Date of service: 10/03/23 Time of Service: 11:26 LACE Index Scoring Tool Questions: Length of Stay (in days): 1 Was the patient admitted via the E.D.?: Yes Comorbidities: Mild Liver/Renal Disease E.D. Visits: 1 Answers: Total Score: 7 Risk of Readmission: Low Risk Care Management Discharge Plan Reason for Hospitalization: DKA Discharge Plan: Mariah is discharged home via private vehicle. Pt agrees to follow up with community providers local to her and discharge plan of care. No new services are ordered at the time of this discharge. Patient/Family Education Needs: Review discharge instructions, limitations, medications and plan to follow up with community providers. Discuss ask me three. 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
[2023-10-03] MEDS: Insulin Aspart 300 UNITS/3 ML PEN SC ×2 (09:28→11:57)
--- NOTE | 2023-10-03 10:34 | W.PM.DS.N ---
Date of service: 10/03/23 Time of Service: 11:08 DS: Diagnosis Discharge Diagnosis (1) DKA (diabetic ketoacidosis): Status: Acute Discharge Plan Disposition Patient Disposition: Home Condition: Good Discharge Details Reason For Visit: DKA Admit Date/Time: 10/02/23 11:41 Admit Provider: Martinez Rogers Attending Provider: Martinez Rogers Primary Care Provider: Rosa,Local Hospital Course Hospital Course: Patient initially presented with signs and symptoms consistent with DKA as she was traveling for work and unable to have additional insulin prescribed for her while on the road. She has been off the insulin drip since late last night with her gap having closed, and has been tolerating PO intake well without any issue. Home Meds and New Rx's Prescriptions: New insulin lispro [Humalog U-100 Insulin] 100 unit/mL solution 1 sliding scale dose subcut USEASDIRECTD Qty: 10 0RF Continued insulin degludec [Tresiba FlexTouch U-100] 100 unit/mL (3 mL) insulin pen 15 unit subcut DAILY Qty: 15 1RF Discontinued Humalog U-100 Insulin 2 unit IM/SC AC Rx Instructions: 2 units for every 15 carbohydrates Discharge Instructions Activity:: Activity as Tolerated Equipment/Supplies:: No Equipment Needed Diet:: As Tolerated Discharge Orders Discharge Orders: Discharge Order (Routine); Ordered 10/03/23 Ordered By: Gutierrez Estrada DS: Summary Time Spent with Patient providing and/or coordinating discharge services: Greater than 30 minutes Status at Discharge Functional status at discharge: independent ambulation Overall status at discharge: patient is back to baseline Mental Status: mental status grossly normal Speech and Movement: speech and movement normal Mood: congruent mood Affect: normal affect Quality:SDOH Health Related Social Needs: No Data to Display Referrals and interventions: Pt is currently working and traveling with the fair now at the [facility] Exam Narrative Exam Narrative: well appearing young female sitting up in bed in no acute distress, AOx4, heart RRR, lungs CTAB, abdomen soft, non-tender, non-distended Psych Mental Status: mental status grossly normal Speech and Movement: speech and movement normal Mood: congruent mood Affect: normal affect DS: Data Vitals/I&O Vitals and I&O: Vital Signs Temperature 98.2 F 10/02/23 19:45 Temperature Source Temporal Artery Scan 10/02/23 19:45 Pulse 60 10/03/23 04:01 Pulse 66 10/03/23 04:01 Respiratory Rate 18 10/03/23 04:01 Respiratory Effort Normal, Non-Labored 10/03/23 07:15 Respiratory Depth Normal 10/03/23 07:15 Respiratory Pattern Normal 10/03/23 07:15 Blood Pressure 96/59 L 10/03/23 04:01 Blood Pressure Mean 71 10/03/23 04:01 Blood Pressure Position Supine 10/02/23 16:39 Pulse Oximetry 100 10/03/23 04:01 Oxygen Delivery Method Room Air 10/03/23 07:15 Oxygen Flow Rate 0 10/03/23 07:15 Pain Level 0 10/03/23 07:15 Intake & Output 10/02/23 10/03/23 10/03/23 17:59 05:59 17:59 Intake Total 2943.800 / 2943.800 2595.984 / 5539.784 120 / 120 Output Total 225 / 225 450 / 675 350 / 350 Balance 2718.800 / 2718.800 2145.984 / 4864.784 -230 / -230 Weight 134 lb 0.657 oz Intake: IV 2423.800 / 2423.800 1915.984 / 4339.784 Oral 520 / 520 680 / 1200 120 / 120 Output: Urine 225 / 225 450 / 675 350 / 350 Other: Urine Color Yellow Yellow Yellow Urine Appearance Clear Clear Clear Urine Odor Normal Normal None Comment Pt reports definitely not Voiding Methods Bedside Commode Bedside Commode Bedside Commode Data Completed and Pending Labs on day of discharge: Labs from last 24 hours 10/03/23 10/02/23 10/02/23 05:52 22:52 22:00 WBC 8.99 RBC 4.01 Hgb 12.5 D Hct 36.9 MCV 92 MCH 31.2 MCHC 33.9 RDW 12.5 Plt Count 244 MPV 9.5 Immature Gran % 0.3 Neutrophils % 64.6 Lymphocytes % 27.0 Monocytes % 7.2 Eosinophils % 0.7 Basophils % 0.2 Nucleated RBC % 0.0 Absolute Neutrophils 5.80 Absolute Lymphocytes 2.43 Absolute Monocytes 0.65 Absolute Eosinophils 0.06 Absolute Basophils 0.02 VBG pH VBG pCO2 VBG pO2 VBG HCO3 VBG Total CO2 VBG O2 Saturation VBG Base Excess VBG Lactate Sodium 137 133 L Cancelled Potassium 3.8 4.2 Cancelled Chloride 108 H 104 Cancelled Carbon Dioxide 19.1 L 19.8 L Cancelled Anion Gap 9.9 9.2 Cancelled BUN 11 13 Cancelled Creatinine 0.9 1.0 Cancelled Est GFR (CKD-EPI 2020) 86.03 75.81 Cancelled Glucose 80 171 H Cancelled Hemoglobin A1c Calcium 7.8 L 7.9 L Cancelled Phosphorus Magnesium Cancelled Total Bilirubin 0.58 AST 21 ALT 22 Alkaline Phosphatase 63 Total Protein 5.6 L Albumin 3.0 L Add-On Test Request 10/02/23 10/02/23 10/02/23 20:53 20:00 19:05 WBC RBC Hgb Hct MCV MCH MCHC RDW Plt Count MPV Immature Gran % Neutrophils % Lymphocytes % Monocytes % Eosinophils % Basophils % Nucleated RBC % Absolute Neutrophils Absolute Lymphocytes Absolute Monocytes Absolute Eosinophils Absolute Basophils VBG pH VBG pCO2 VBG pO2 VBG HCO3 VBG Total CO2 VBG O2 Saturation VBG Base Excess VBG Lactate Sodium 132 L Cancelled 132 L Potassium 4.3 Cancelled 4.5 Chloride 104 Cancelled 104 Carbon Dioxide 17.6 L Cancelled 16.5 L Anion Gap 10.4 Cancelled 11.5 H BUN 13 Cancelled 13 Creatinine 1.0 Cancelled 1.1 H Est GFR (CKD-EPI 2020) 75.81 Cancelled 67.62 Glucose 157 H Cancelled 175 H Hemoglobin A1c Calcium 7.9 L Cancelled 7.9 L Phosphorus Magnesium Cancelled Total Bilirubin AST ALT Alkaline Phosphatase Total Protein Albumin Add-On Test Request 10/02/23 10/02/23 10/02/23 18:00 16:50 16:00 WBC RBC Hgb Hct MCV MCH MCHC RDW Plt Count MPV Immature Gran % Neutrophils % Lymphocytes % Monocytes % Eosinophils % Basophils % Nucleated RBC % Absolute Neutrophils Absolute Lymphocytes Absolute Monocytes Absolute Eosinophils Absolute Basophils VBG pH 7.29 L VBG pCO2 33 L VBG pO2 32 VBG HCO3 16 L VBG Total CO2 14 L VBG O2 Saturation 61 VBG Base Excess -11 L VBG Lactate Sodium Cancelled 133 L Cancelled Potassium Cancelled 4.2 Cancelled Chloride Cancelled 102 Cancelled Carbon Dioxide Cancelled 17.0 L Cancelled Anion Gap Cancelled 14.0 H Cancelled BUN Cancelled 13 Cancelled Creatinine Cancelled 1.2 H Cancelled Est GFR (CKD-EPI 2020) Cancelled 60.92 Cancelled Glucose Cancelled 163 H Cancelled Hemoglobin A1c 11.8 H Calcium Cancelled 8.1 L Cancelled Phosphorus Magnesium Cancelled Cancelled Total Bilirubin AST ALT Alkaline Phosphatase Total Protein Albumin Add-On Test Request DONE 10/02/23 10/02/23 10/02/23 15:10 14:00 13:04 WBC RBC Hgb Hct MCV MCH MCHC RDW Plt Count MPV Immature Gran % Neutrophils % Lymphocytes % Monocytes % Eosinophils % Basophils % Nucleated RBC % Absolute Neutrophils Absolute Lymphocytes Absolute Monocytes Absolute Eosinophils Absolute Basophils VBG pH VBG pCO2 VBG pO2 VBG HCO3 VBG Total CO2 VBG O2 Saturation VBG Base Excess VBG Lactate Sodium 132 L Cancelled 134 L Potassium 4.3 Cancelled 4.4 Chloride 102 Cancelled 100 Carbon Dioxide 14.8 L Cancelled 12.2 L Anion Gap 15.2 H Cancelled 21.8 H BUN 13 Cancelled 15 Creatinine 1.1 H Cancelled 1.2 H Est GFR (CKD-EPI 2020) 67.62 Cancelled 60.92 Glucose 187 H Cancelled 212 H Hemoglobin A1c Calcium 8.0 L Cancelled 7.9 L Phosphorus Magnesium Cancelled Total Bilirubin AST ALT Alkaline Phosphatase Total Protein Albumin Add-On Test Request 10/02/23 10/02/23 12:00 11:02 WBC RBC Hgb Hct MCV MCH MCHC RDW Plt Count MPV Immature Gran % Neutrophils % Lymphocytes % Monocytes % Eosinophils % Basophils % Nucleated RBC % Absolute Neutrophils Absolute Lymphocytes Absolute Monocytes Absolute Eosinophils Absolute Basophils VBG pH 7.19 L* VBG pCO2 19 L* VBG pO2 99 VBG HCO3 7 L VBG Total CO2 7 L VBG O2 Saturation 97 VBG Base Excess -21 L VBG Lactate 1.7 H Sodium Cancelled 132 L Potassium Cancelled 4.5 Chloride Cancelled 98 Carbon Dioxide Cancelled 8.8 L Anion Gap Cancelled 25.2 H BUN Cancelled 17 Creatinine Cancelled 1.1 H Est GFR (CKD-EPI 2020) Cancelled 67.62 Glucose Cancelled 325 H Hemoglobin A1c Calcium Cancelled 8.0 L Phosphorus 3.3 Magnesium Cancelled 1.8 Total Bilirubin AST ALT Alkaline Phosphatase Total Protein Albumin Add-On Test Request PFSH All Active Problems (Updated 10/02/23 @ 16:18 by Martinez Rogers MD) Type I diabetes mellitus (Acute ~2015) DKA (diabetic ketoacidosis) (Acute) last A1C was checked last year and reported to be 9.2% Surgical History (Updated 10/02/23 @ 16:06 by Martinez Rogers MD) History of tonsillectomy Hx of breast implants, bilateral Social History Smoking/Tobacco Use Status: Current every day Tobacco Type: cigarettes and e-cigarettes Smoking risk assessment performed?: Yes Alcohol Intake: current Alcohol Intake frequency: a few times a month Drug use: Daily Substance use type: marijuana Housing: apartment Time Spent with Patient Time Spent with Patient: <45 minutes Time was spent: preparing to see the patient(eg.review tests), obtaining and/or reviewing separately otained hiistory, ordering medications,tests, procedures, referring, communicating with other health patient care specialist, indepentently interpreting results, counseling the patient and care coordination
== END 2023-10-03 13:00 | disposition home or self-care (01) | DRG 639 ==
LOC: ER 08:43 → ICU 12:16
PROVIDERS: Student in an Organized Health Care Education/Training Program; Admitting Provider Internal Medicine; Emergency Provider Emergency Medicine; Visit Provider Internal Medicine
DX: E10.10 Type 1 diabetes mellitus with ketoacidosis without coma (principal); F17.290 Nicotine dependence, other tobacco product, uncomplicated
CPT/HCPCS: 00123; 36410; 36415; 36416; 80048; 80053; 81025; 82805; 82962; 93005; 96361; 96365; 96366; 96375; 96376; 99285; J1650; 71046; 81003; 83036; 83605; 83735; 84100; 84484; 84702; 85025; 93010; 99238; 99291; J1815; J2405